=== PATIENT | male | born 1940 | race Caucasian/White ===

== ENCOUNTER 2018-05-16 07:52 | Inpatient (IN) ==
[2018-05-16] MEDS ORDERED: MORPHINE 4 MG/1 ML VIAL IV PRN (08:25)
[2018-05-16] MEDS ORDERED: ASPIRIN 325 MG TABLET PO STA (08:25)
[2018-05-16] MEDS ORDERED: ONDANSETRON 4 MG/2 ML VIAL IV PRN ×2 (08:25→11:16)
[2018-05-16] MEDS ORDERED: NITROGLYCERIN 2% OINT 1 INCH/GM PACK TOP STA (08:25)
[2018-05-16 08:38] LABS: Basophils % 0.3 % (0.0-0.8); Eosinophils % 0.3 % (0.00-10.9); Hematocrit 33.4 VOL% (42.0-52.0); Hemoglobin 11.5 GM/DL (14.0-18.0); Immature Granulocytes % 0.6 %; Immature Granulocytes Absolute 0.07 #; Lymphocytes # 0.9 10*3/uL (1.4-4.0); Mean Corpuscular HGB Conc 34.4 GM/DL (32-36); Mean Corpuscular Hemoglobin 29 PG (27-34); Mean Corpuscular Volume 84.3 FL (87-102); Mean Platelet Volume 9.8 FL (9.6-12.0); Monocytes % 8.4 % (1.7-12.7); Neutrophils # 10.3 10*3/uL (1.4-7.4); Neutrophils % 83.4 % (38.7-73.9); Platelet Count 319 T/CUMM (130-400); Red Blood Count 3.96 MC/CUMM (3.8-5.5); Red Cell Distribution Width 13.5 % (9.3-17.3); White Blood Count 12.3 T/CUMM (4-12)
[2018-05-16 08:44] LABS: INR 1.1; Partial Thromboplastin Time 33.5 SECS (0-40)
[2018-05-16 09:15] LABS: Albumin 3.5 G/DL (3.4-5.0); Bilirubin,Total 0.7 MG/DL (0.2-1.0); Calcium 8.2 MG/DL (8.5-10.1); Osmolality,Calculated 268.7 MOS/KG (273-304); Potassium 4.4 MMOL/L (3.5-5.1)
[2018-05-16] MEDS ORDERED: ACETAMINOPHEN 325 MG TABLET PO PRN (11:16)
[2018-05-16] MEDS: SODIUM CHLORIDE 0.9% 1,000 ML IV SCH (12:14)
[2018-05-16] MEDS ORDERED: DIAZEPAM 5 MG TABLET PO ONE (13:29)
[2018-05-16] MEDS ORDERED: POTASSIUM CHLORIDE RIDER 10 MEQ in PREMIX 1 EACH IV PRN (13:29)
[2018-05-16] MEDS ORDERED: diphenhydrAMINE CAP 25 MG CAPSULE PO ONE (13:29)
[2018-05-16] MEDS ORDERED: MAGNESIUM SULF RIDER 2 GM in PREMIX 1 EACH IV PRN (13:29)
[2018-05-16] MEDS ORDERED: LIDOCAINE 1% 20 ML VIAL ONE (13:33)
[2018-05-16] MEDS ORDERED: HEPARIN/NACL 0.9% 2 UNITS/ML 0 ML IV ONE (13:33)
[2018-05-16] MEDS ORDERED: HEPARIN/NACL 0.9% 2 UNITS/ML 1,000 ML IV ONE (13:35)
[2018-05-16] MEDS ORDERED: MIDAZOLAM 2 MG/2 ML VIAL ONE (14:01)
[2018-05-16] MEDS ORDERED: VERAPAMIL 5 MG/2 ML VIAL ONE (14:01)
[2018-05-16] MEDS ORDERED: HYDROmorphone 2 MG/1 ML VIAL ONE (14:01)
[2018-05-16] MEDS ORDERED: NITROGLYCERIN DRIP 50 MG/250 ML BOTTLE IV ONE (14:01)
[2018-05-16] MEDS ORDERED: SODIUM CHLORIDE 0.9% 1,000 ML IV SCH (14:30)
[2018-05-16] MEDS: GEMFIBROZIL 600 MG TABLET PO SCH (17:10)
[2018-05-16] MEDS: RANOLAZINE 500 MG TABLET PO SCH (21:28)
[2018-05-16] MEDS: PANTOPRAZOLE 40 MG VIAL IV SCH (21:28)
[2018-05-16] MEDS: ASCORBIC ACID 500 MG TABLET PO SCH (21:28)
[2018-05-16] MEDS: ATORVASTATIN 40 MG TABLET PO SCH (21:28)
[2018-05-16] MEDS: GABAPENTIN 300 MG CAPSULE PO SCH (21:28)
[2018-05-16 21:58] LABS: Apearance,Urine CLEAR (Clear); Bilirubin,Urine Negative (Negative); Blood, Urine Negative (Negative); Glucose,Urine (UA) Negative (Negative); Ketones,Urine Negative (Negative); Nitrite,Urine Negative (Negative); Protein,Urine Negative; RBC,Urine <1 /HPF (0-4); Urine Color Yellow (Yellow); Urine Specific Gravity 1.057 (1.001-1.035); Urine Urobilinogen < 2.0 EU/DL (0.2-1.0); WBC,Urine 2 /HPF (0-6)
[2018-05-17] MEDS: SODIUM CHLORIDE 0.9% 1,000 ML IV SCH ×2 (00:51→16:23)
[2018-05-17 04:38] LABS: Basophils % 0.4 % (0.0-0.8); Eosinophils # 0.1 10*3/uL (0.0-0.87); Eosinophils % 1.2 % (0.00-10.9); Hemoglobin 11.2 GM/DL (14.0-18.0); Immature Granulocytes % 0.6 %; Immature Granulocytes Absolute 0.05 #; Lymphocytes # 0.9 10*3/uL (1.4-4.0); Mean Corpuscular HGB Conc 33.9 GM/DL (32-36); Mean Corpuscular Hemoglobin 29 PG (27-34); Mean Corpuscular Volume 84.2 FL (87-102); Mean Platelet Volume 9.9 FL (9.6-12.0); Monocytes # 0.8 10*3/uL (0.11-0.8); Monocytes % 8.6 % (1.7-12.7); Neutrophils # 7.2 10*3/uL (1.4-7.4); Neutrophils % 79.2 % (38.7-73.9); Platelet Count 280 T/CUMM (130-400); Red Blood Count 3.92 MC/CUMM (3.8-5.5); Red Cell Distribution Width 13.8 % (9.3-17.3); White Blood Count 9.1 T/CUMM (4-12)
[2018-05-17 05:22] LABS: Calcium 8.2 MG/DL (8.5-10.1); Osmolality,Calculated 264.7 MOS/KG (273-304); Potassium 4.4 MMOL/L (3.5-5.1); Risk Ratio 2.52; Thyroid Stimulating Hormone 0.943 uIU/ml (0.358-3.74); VLDL CHOLESTEROL 14.2 MG/DL
[2018-05-17] MEDS: LEVOTHYROXINE 75 MCG TABLET PO SCH (06:35)
[2018-05-17] MEDS: GEMFIBROZIL 600 MG TABLET PO SCH ×2 (09:29→16:23)
[2018-05-17] MEDS: ASPIRIN EC 81 MG TABLET PO SCH (09:29)
[2018-05-17] MEDS: MONTELUKAST 10 MG TABLET PO SCH (09:30)
[2018-05-17] MEDS: RANOLAZINE 500 MG TABLET PO SCH ×2 (09:30→20:44)
[2018-05-17] MEDS: ASCORBIC ACID 500 MG TABLET PO SCH ×2 (09:30→20:43)
[2018-05-17] MEDS: CHOLECALCIFEROL 5,000 UNIT TABLET PO SCH (09:30)
[2018-05-17] MEDS: ESCITALOPRAM 10 MG TABLET PO SCH (09:30)
[2018-05-17] MEDS: ISOSORBIDE MONONITRATE 30 MG TABLET PO SCH (09:30)
[2018-05-17] MEDS: PANTOPRAZOLE 40 MG VIAL IV SCH ×2 (09:32→20:43)
[2018-05-17] MEDS: PANTOPRAZOLE 40 MG TABLET PO SCH (09:40)
[2018-05-17] MEDS: GABAPENTIN 300 MG CAPSULE PO SCH (20:43)
[2018-05-17] MEDS: ATORVASTATIN 40 MG TABLET PO SCH (20:44)
[2018-05-18 04:06] LABS: Basophils % 0.3 % (0.0-0.8); Eosinophils # 0.2 10*3/uL (0.0-0.87); Eosinophils % 1.5 % (0.00-10.9); Hematocrit 33.4 VOL% (42.0-52.0); Hemoglobin 11.6 GM/DL (14.0-18.0); Immature Granulocytes % 0.5 %; Immature Granulocytes Absolute 0.05 #; Lymphocytes # 0.8 10*3/uL (1.4-4.0); Lymphocytes % 8.4 % (21.2-54.2); Mean Corpuscular HGB Conc 34.7 GM/DL (32-36); Mean Corpuscular Hemoglobin 28 PG (27-34); Mean Corpuscular Volume 81.7 FL (87-102); Monocytes # 0.8 10*3/uL (0.11-0.8); Monocytes % 7.8 % (1.7-12.7); Neutrophils # 8.1 10*3/uL (1.4-7.4); Neutrophils % 81.5 % (38.7-73.9); Platelet Count 338 T/CUMM (130-400); Red Blood Count 4.09 MC/CUMM (3.8-5.5); Red Cell Distribution Width 13.5 % (9.3-17.3); White Blood Count 9.9 T/CUMM (4-12)
[2018-05-18 04:21] LABS: Calcium 8.2 MG/DL (8.5-10.1); Osmolality,Calculated 271.1 MOS/KG (273-304)
[2018-05-18] MEDS: SODIUM CHLORIDE 0.9% 1,000 ML IV SCH (05:20)
[2018-05-18] MEDS: LEVOTHYROXINE 75 MCG TABLET PO SCH (05:42)
[2018-05-18] MEDS ORDERED: LIDOCAINE 2% 5 ML VIAL ONE (10:00)
[2018-05-18] MEDS ORDERED: PROPOFOL 200 MG/20 ML VIAL IV ONE (10:00)
[2018-05-18 12:11] VITALS: BP 142/64
[2018-05-18] MEDS: CHOLECALCIFEROL 5,000 UNIT TABLET PO SCH (13:02)
[2018-05-18] MEDS: PANTOPRAZOLE 40 MG TABLET PO SCH (13:02)
[2018-05-18] MEDS: MONTELUKAST 10 MG TABLET PO SCH (13:02)
[2018-05-18] MEDS: ASPIRIN EC 81 MG TABLET PO SCH (13:02)
[2018-05-18] MEDS: RANOLAZINE 500 MG TABLET PO SCH (13:02)
[2018-05-18] MEDS: ESCITALOPRAM 10 MG TABLET PO SCH (13:03)
[2018-05-18] MEDS: ISOSORBIDE MONONITRATE 30 MG TABLET PO SCH (13:03)
[2018-05-18] MEDS: GEMFIBROZIL 600 MG TABLET PO SCH (13:03)
[2018-05-18] MEDS: ASCORBIC ACID 500 MG TABLET PO SCH (13:03)
[2018-05-18] MEDS: PANTOPRAZOLE 40 MG VIAL IV SCH (13:09)
== END 2018-05-18 15:49 | disposition home or self-care (01) | DRG 287 ==
LOC: N.ED 07:52 → N.EDINP 10:08 → N.2W 11:07 → N.TELEN 13:48
PROVIDERS: ADMIT Internal Medicine; ATTEND Internal Medicine
PROC: CLCCHCL (ICD-10-PCS; 2018-05-16 14:30)

== ENCOUNTER 2018-09-29 08:22 | Inpatient (IN) ==
[2018-09-29] MEDS ORDERED: ALBUTEROL/IPRATROPIUM 3 ML NEB RESP TX STA (09:00)
[2018-09-29] MEDS ORDERED: ONDANSETRON 4 MG/2 ML VIAL IV STA (09:00)
[2018-09-29 09:18] LABS: Basophils # 0.1 10*3/uL (0.0-0.2); Basophils % 0.4 % (0.0-0.8); Eosinophils # 0.2 10*3/uL (0.0-0.87); Eosinophils % 1.3 % (0.00-10.9); Hematocrit 25.2 VOL% (42.0-52.0); Immature Granulocytes % 0.5 %; Immature Granulocytes Absolute 0.06 #; Lymphocytes # 1.2 10*3/uL (1.4-4.0); Lymphocytes % 9.9 % (21.2-54.2); Mean Corpuscular HGB Conc 27.8 GM/DL (32-36); Mean Corpuscular Hemoglobin 19 PG (27-34); Mean Corpuscular Volume 69.4 FL (87-102); Mean Platelet Volume 9.8 FL (9.6-12.0); Monocytes # 0.9 10*3/uL (0.11-0.8); Monocytes % 7.4 % (1.7-12.7); Neutrophils # 9.5 10*3/uL (1.4-7.4); Neutrophils % 80.5 % (38.7-73.9); Platelet Count 433 T/CUMM (130-400); Red Blood Count 3.63 MC/CUMM (3.8-5.5); Red Cell Distribution Width 17.6 % (9.3-17.3); White Blood Count 11.8 T/CUMM (4-12)
[2018-09-29 09:19] LABS: INR 1.1; PT Patient Result 11.7 SECS; Partial Thromboplastin Time 24.3 SECS (0-40)
[2018-09-29 09:26] LABS: Albumin 3.8 G/DL (3.4-5.0); Bilirubin,Total 0.4 MG/DL (0.2-1.0); CKMB % 15.2 %; Calcium 8.4 MG/DL (8.5-10.1); Osmolality,Calculated 279.7 MOS/KG (273-304); Potassium 3.7 MMOL/L (3.5-5.1); Total Protein 7.2 G/DL (6.4-8.3)
[2018-09-29] MEDS ORDERED: FUROSEMIDE 40 MG/4 ML VIAL IV STA (09:26)
[2018-09-29 09:30] LABS: Troponin I 5.15 NG/ML (0.00-0.045)
[2018-09-29] MEDS ORDERED: ASPIRIN 325 MG TABLET ONE (09:31)
[2018-09-29 09:42] LABS: Ovalocytes Slight
[2018-09-29 09:43] LABS: Acanthocytes Few; Hypochromasia 2+; Microcytosis 1+; Platelet Estimate Increased; Target Cells Slight
[2018-09-29] MEDS ORDERED: ONDANSETRON 4 MG/2 ML VIAL IV PRN (10:02)
[2018-09-29] MEDS ORDERED: ZALEPLON 5 MG CAPSULE PO PRN (10:02)
[2018-09-29] MEDS ORDERED: NITROGLYCERIN SL 0.4 MG TABLET SL PRN (10:07)
[2018-09-29 11:15] LABS: Apearance,Urine CLEAR (Clear); Bilirubin,Urine Negative (Negative); Blood, Urine Negative (Negative); Glucose,Urine (UA) Negative (Negative); Ketones,Urine Negative (Negative); Nitrite,Urine Negative (Negative); Protein,Urine Negative; Urine Color Colorless (Yellow); Urine Specific Gravity 1.004 (1.001-1.035); Urine Urobilinogen < 2.0 EU/DL (0.2-1.0)
[2018-09-29] MEDS ORDERED: SODIUM CHLORIDE 0.9% 1,000 ML IV PRN (11:57)
[2018-09-29] MEDS: PANTOPRAZOLE 40 MG VIAL IV SCH ×2 (12:49→22:04)
[2018-09-29] MEDS: RANOLAZINE 500 MG TABLET PO SCH ×2 (12:50→21:58)
[2018-09-29] MEDS ORDERED: FUROSEMIDE 40 MG/4 ML VIAL IV ONE ×2 (15:22→19:03)
[2018-09-29] MEDS: GEMFIBROZIL 600 MG TABLET PO SCH (16:49)
[2018-09-29] MEDS: ATORVASTATIN 40 MG TABLET PO SCH (21:58)
[2018-09-29] MEDS: GABAPENTIN 300 MG CAPSULE PO SCH (21:58)
[2018-09-29 23:53] LABS: Hematocrit 30.1 VOL% (42.0-52.0)
[2018-09-30] MEDS: SODIUM CHLORIDE 0.9% 1,000 ML IV SCH ×2 (00:06→10:50)
[2018-09-30 04:04] LABS: Basophils # 0.1 10*3/uL (0.0-0.2); Basophils % 0.8 % (0.0-0.8); Eosinophils # 0.5 10*3/uL (0.0-0.87); Eosinophils % 5.3 % (0.00-10.9); Hemoglobin 9.1 GM/DL (14.0-18.0); Immature Granulocytes % 0.4 %; Immature Granulocytes Absolute 0.04 #; Lymphocytes # 1.7 10*3/uL (1.4-4.0); Lymphocytes % 19.2 % (21.2-54.2); Mean Corpuscular HGB Conc 29.4 GM/DL (32-36); Mean Corpuscular Hemoglobin 21 PG (27-34); Mean Corpuscular Volume 70.5 FL (87-102); Mean Platelet Volume 9.7 FL (9.6-12.0); Monocytes # 0.9 10*3/uL (0.11-0.8); Monocytes % 9.6 % (1.7-12.7); Neutrophils # 5.8 10*3/uL (1.4-7.4); Neutrophils % 64.7 % (38.7-73.9); Platelet Count 417 T/CUMM (130-400); Red Cell Distribution Width 20.7 % (9.3-17.3)
[2018-09-30 04:12] LABS: Calcium 8.7 MG/DL (8.5-10.1); Osmolality,Calculated 274.1 MOS/KG (273-304); Potassium 3.7 MMOL/L (3.5-5.1)
[2018-09-30] MEDS: RANOLAZINE 500 MG TABLET PO SCH ×2 (09:01→20:52)
[2018-09-30] MEDS: GEMFIBROZIL 600 MG TABLET PO SCH ×2 (09:01→16:11)
[2018-09-30] MEDS: MONTELUKAST 10 MG TABLET PO SCH (09:01)
[2018-09-30] MEDS: LOSARTAN 50 MG TABLET PO SCH (09:02)
[2018-09-30] MEDS: ASPIRIN EC 81 MG TABLET PO SCH (09:02)
[2018-09-30] MEDS: LEVOTHYROXINE 75 MCG TABLET PO SCH (09:02)
[2018-09-30] MEDS: PANTOPRAZOLE 40 MG VIAL IV SCH ×2 (09:02→20:52)
[2018-09-30] MEDS: ESCITALOPRAM 10 MG TABLET PO SCH (10:51)
[2018-09-30] MEDS: ATORVASTATIN 40 MG TABLET PO SCH (20:52)
[2018-09-30] MEDS: GABAPENTIN 300 MG CAPSULE PO SCH (20:52)
[2018-10-01 05:20] LABS: Calcium 8.7 MG/DL (8.5-10.1); Osmolality,Calculated 270.2 MOS/KG (273-304); Potassium 4.6 MMOL/L (3.5-5.1)
[2018-10-01 05:42] LABS: Basophils % 0.4 % (0.0-0.8); Eosinophils # 0.6 10*3/uL (0.0-0.87); Eosinophils % 9.3 % (0.00-10.9); Hemoglobin 9.6 GM/DL (14.0-18.0); Immature Granulocytes % 0.6 %; Immature Granulocytes Absolute 0.04 #; Lymphocytes # 1.5 10*3/uL (1.4-4.0); Lymphocytes % 22.3 % (21.2-54.2); Mean Corpuscular HGB Conc 29.1 GM/DL (32-36); Mean Corpuscular Hemoglobin 21 PG (27-34); Mean Platelet Volume 9.5 FL (9.6-12.0); Monocytes # 0.8 10*3/uL (0.11-0.8); Monocytes % 11.6 % (1.7-12.7); Neutrophils # 3.8 10*3/uL (1.4-7.4); Neutrophils % 55.8 % (38.7-73.9); Platelet Count 399 T/CUMM (130-400); Red Blood Count 4.65 MC/CUMM (3.8-5.5); Red Cell Distribution Width 21.4 % (9.3-17.3); White Blood Count 6.8 T/CUMM (4-12)
[2018-10-01 05:51] LABS: Hypochromasia 1+; Microcytosis Slight; Ovalocytes Slight; Platelet Estimate Adequate
[2018-10-01] MEDS: LEVOTHYROXINE 75 MCG TABLET PO SCH (07:25)
[2018-10-01] MEDS: ESCITALOPRAM 10 MG TABLET PO SCH (08:34)
[2018-10-01] MEDS: GEMFIBROZIL 600 MG TABLET PO SCH ×2 (08:35→16:40)
[2018-10-01] MEDS: MONTELUKAST 10 MG TABLET PO SCH (08:35)
[2018-10-01] MEDS: RANOLAZINE 500 MG TABLET PO SCH ×2 (08:35→20:33)
[2018-10-01] MEDS: PANTOPRAZOLE 40 MG VIAL IV SCH ×2 (08:35→20:34)
[2018-10-01] MEDS: ASPIRIN EC 81 MG TABLET PO SCH (08:35)
[2018-10-01] MEDS: LOSARTAN 50 MG TABLET PO SCH (08:35)
[2018-10-01] MEDS ORDERED: MAGNESIUM HYDROXIDE SUSP 30 ML UDCUP PO PRN (09:43)
[2018-10-01] MEDS: DOCUSATE SODIUM 100 MG CAPSULE PO SCH ×2 (10:44→20:33)
[2018-10-01] MEDS ORDERED: MAGNESIUM CITRATE 300 ML BOTTLE PO ONE (18:00)
[2018-10-01] MEDS: GABAPENTIN 300 MG CAPSULE PO SCH (20:33)
[2018-10-01] MEDS: ATORVASTATIN 40 MG TABLET PO SCH (20:33)
[2018-10-02] MEDS: LEVOTHYROXINE 75 MCG TABLET PO SCH (06:36)
[2018-10-02] MEDS: GEMFIBROZIL 600 MG TABLET PO SCH ×2 (06:36→16:48)
[2018-10-02] MEDS: PANTOPRAZOLE 40 MG VIAL IV SCH ×2 (09:41→20:14)
[2018-10-02] MEDS: ASPIRIN EC 81 MG TABLET PO SCH (09:41)
[2018-10-02] MEDS: RANOLAZINE 500 MG TABLET PO SCH ×2 (09:42→20:13)
[2018-10-02] MEDS: MONTELUKAST 10 MG TABLET PO SCH (09:42)
[2018-10-02] MEDS: DOCUSATE SODIUM 100 MG CAPSULE PO SCH ×2 (09:42→20:14)
[2018-10-02] MEDS: ESCITALOPRAM 10 MG TABLET PO SCH (09:42)
[2018-10-02] MEDS: LOSARTAN 50 MG TABLET PO SCH (09:42)
[2018-10-02] MEDS: GABAPENTIN 300 MG CAPSULE PO SCH (20:13)
[2018-10-02] MEDS: ATORVASTATIN 40 MG TABLET PO SCH (20:13)
[2018-10-03 04:33] LABS: Calcium 9.3 MG/DL (8.5-10.1); Osmolality,Calculated 274.1 MOS/KG (273-304)
[2018-10-03 04:50] LABS: Basophils # 0.1 10*3/uL (0.0-0.2); Basophils % 0.7 % (0.0-0.8); Eosinophils # 0.8 10*3/uL (0.0-0.87); Eosinophils % 9.5 % (0.00-10.9); Hematocrit 36.9 VOL% (42.0-52.0); Hemoglobin 10.6 GM/DL (14.0-18.0); Immature Granulocytes % 0.5 %; Immature Granulocytes Absolute 0.04 #; Lymphocytes # 2.2 10*3/uL (1.4-4.0); Lymphocytes % 26.2 % (21.2-54.2); Mean Corpuscular HGB Conc 28.7 GM/DL (32-36); Mean Corpuscular Hemoglobin 21 PG (27-34); Mean Corpuscular Volume 71.5 FL (87-102); Mean Platelet Volume 9.3 FL (9.6-12.0); Monocytes # 0.8 10*3/uL (0.11-0.8); Monocytes % 8.8 % (1.7-12.7); Neutrophils # 4.6 10*3/uL (1.4-7.4); Neutrophils % 54.3 % (38.7-73.9); Platelet Count 465 T/CUMM (130-400); Red Blood Count 5.16 MC/CUMM (3.8-5.5); Red Cell Distribution Width 22.3 % (9.3-17.3); White Blood Count 8.5 T/CUMM (4-12)
[2018-10-03 04:59] LABS: Burr Cells Slight; Hypochromasia 1+; Ovalocytes Slight; Platelet Estimate Adequate
[2018-10-03 05:00] LABS: Microcytosis Slight
[2018-10-03] MEDS: LEVOTHYROXINE 75 MCG TABLET PO SCH (05:35)
[2018-10-03] MEDS: LOSARTAN 50 MG TABLET PO SCH (08:48)
[2018-10-03] MEDS: ESCITALOPRAM 10 MG TABLET PO SCH (08:48)
[2018-10-03] MEDS: MONTELUKAST 10 MG TABLET PO SCH (08:48)
[2018-10-03] MEDS: GEMFIBROZIL 600 MG TABLET PO SCH (08:48)
[2018-10-03] MEDS: ASPIRIN EC 81 MG TABLET PO SCH (08:49)
[2018-10-03] MEDS: PANTOPRAZOLE 40 MG VIAL IV SCH (08:49)
[2018-10-03] MEDS: DOCUSATE SODIUM 100 MG CAPSULE PO SCH (08:49)
[2018-10-03] MEDS: RANOLAZINE 500 MG TABLET PO SCH (08:55)
[2018-10-03 16:04] VITALS: BP 140/67
== END 2018-10-03 18:00 | disposition home or self-care (01) | DRG 377 ==
LOC: N.ED 08:22 → SUATTDRO 09:50 → N.EDINP 10:02 → N.TELEN 11:09
PROVIDERS: ADMIT Internal Medicine Cardiovascular Disease; ATTEND Internal Medicine

== ENCOUNTER 2020-01-10 08:44 | Observation (INO) ==
[2020-01-10] MEDS ORDERED: ASPIRIN 325 MG TABLET PO STA (09:10)
[2020-01-10] MEDS ORDERED: NITROGLYCERIN SL 0.4 MG TABLET SL PRN (09:10)
[2020-01-10] MEDS ORDERED: ENOXAPARIN 100 MG/ML SYRINGE SUBCUT STA (09:10)
[2020-01-10] MEDS ORDERED: ENOXAPARIN 80 MG/0.8 ML SYRINGE SUBCUT ONE (09:12)
[2020-01-10 09:35] LABS: Basophils # 0.1 10*3/uL (0.0-0.2); Basophils % 1.5 % (0.0-0.8); Eosinophils # 0.5 10*3/uL (0.0-0.87); Eosinophils % 8.2 % (0.00-10.9); Hematocrit 44.7 VOL% (42.0-52.0); Hemoglobin 14.6 GM/DL (14.0-18.0); Immature Granulocytes % 0.3 %; Immature Granulocytes Absolute 0.02 #; Lymphocytes # 1.6 10*3/uL (1.4-4.0); Mean Corpuscular HGB Conc 32.7 GM/DL (32-36); Mean Platelet Volume 9.8 FL (9.6-12.0); Platelet Count 302 T/CUMM (130-400); Red Blood Count 5.14 MC/CUMM (3.8-5.5); Red Cell Distribution Width 13.1 % (9.3-17.3); White Blood Count 5.9 T/CUMM (4-12)
[2020-01-10 09:55] LABS: Albumin 3.8 G/DL (3.4-5.0); Bilirubin,Total 0.8 MG/DL (0.2-1.0); Calcium 9.2 MG/DL (8.5-10.1); Osmolality,Calculated 274.1 MOS/KG (273-304); Total Protein 7.4 G/DL (6.4-8.3)
[2020-01-10] MEDS ORDERED: ONDANSETRON 4 MG/2 ML VIAL IV PRN (10:13)
[2020-01-10] MEDS ORDERED: NICOTINE 21 MG/24 HR PATCH TRANSDERM PRN (10:13)
[2020-01-10] MEDS ORDERED: diphenhydrAMINE CAP 25 MG CAPSULE PO PRN (10:13)
[2020-01-10] MEDS ORDERED: ALUMINUM/MAGNES/SIMETH MAX STR 30 ML UDCUP PO PRN (10:13)
[2020-01-10] MEDS ORDERED: SIMETHICONE CHEW 125 MG TABLET PO PRN (10:13)
[2020-01-10] MEDS ORDERED: PROMETHAZINE 25 MG TABLET PO PRN (10:13)
[2020-01-10] MEDS ORDERED: BISACODYL 5 MG TABLET PO PRN (10:13)
[2020-01-10] MEDS ORDERED: MAGNESIUM SULF RIDER 4 GM in PREMIX 1 EACH IV PRN (10:13)
[2020-01-10] MEDS ORDERED: guaiFENesin/DM ER 600-30 MG TABLET PO PRN (10:13)
[2020-01-10] MEDS ORDERED: MAGNESIUM SULF RIDER 2 GM in PREMIX 1 EACH IV PRN (10:13)
[2020-01-10] MEDS ORDERED: POTASSIUM CHLORIDE 20 MEQ TABLET PO PRN (10:13)
[2020-01-10] MEDS ORDERED: ACETAMINOPHEN 325 MG TABLET PO PRN (10:13)
[2020-01-10] MEDS ORDERED: MORPHINE 4 MG/1 ML VIAL IV PRN (10:13)
[2020-01-10] MEDS ORDERED: CALCIUM CARBONATE CHEW 500 MG TABLET PO PRN (10:13)
[2020-01-10] MEDS ORDERED: DOCUSATE SODIUM 100 MG CAPSULE PO PRN (10:13)
[2020-01-10] MEDS ORDERED: hydrALAZINE 20 MG/1 ML VIAL IV PRN (10:13)
[2020-01-10] MEDS ORDERED: ZALEPLON 5 MG CAPSULE PO PRN (10:13)
[2020-01-10 10:32] LABS: Risk Ratio 2.69; VLDL CHOLESTEROL 34.6 MG/DL
[2020-01-10] MEDS ORDERED: CLORAZEPATE 3.75 MG TABLET PO PRN (11:18)
[2020-01-10] MEDS ORDERED: NITROGLYCERIN DRIP 50 MG/250 ML BOTTLE IV ONE (12:05)
[2020-01-10] MEDS ORDERED: VERAPAMIL 5 MG/2 ML VIAL ONE (12:05)
[2020-01-10] MEDS ORDERED: HEPARIN/NACL 0.9% 2 UNITS/ML 1,000 ML IV ONE (12:05)
[2020-01-10] MEDS ORDERED: LIDOCAINE 1% 20 ML VIAL ONE (12:05)
[2020-01-10] MEDS ORDERED: MIDAZOLAM 2 MG/2 ML VIAL ONE (13:49)
[2020-01-10] MEDS ORDERED: HYDROmorphone 2 MG/1 ML VIAL ONE (13:49)
[2020-01-10] MEDS ORDERED: BIVALIRUDIN 250 MG VIAL IV ONE (14:04)
[2020-01-10] MEDS ORDERED: TICAGRELOR 90 MG TABLET ONE (14:05)
[2020-01-10] MEDS ORDERED: POTASSIUM CHLORIDE RIDER 10 MEQ in PREMIX 1 EACH IV PRN (14:39)
[2020-01-10] MEDS ORDERED: DIAZEPAM 5 MG TABLET PO ONE (14:39)
[2020-01-10] MEDS ORDERED: diphenhydrAMINE CAP 25 MG CAPSULE PO ONE (14:39)
[2020-01-10] MEDS: COLESEVELAM 625 MG TABLET PO SCH ×2 (15:44→21:55)
[2020-01-10] MEDS: gemfibroziL 600 MG TABLET PO SCH (15:44)
[2020-01-10] MEDS: SODIUM CHLORIDE 0.45% 1,000 ML IV SCH (15:45)
[2020-01-10 18:30] LABS: Apearance,Urine CLEAR (Clear); Bilirubin,Urine Negative (Negative); Blood, Urine Negative (Negative); Glucose,Urine (UA) Negative (Negative); Ketones,Urine Negative (Negative); Nitrite,Urine Negative (Negative); Protein,Urine Negative; RBC,Urine 2 /HPF (0-4); Squamous Epithelial Cell,Urine Occasional /HPF (0-10); Urine Color Yellow (Yellow); Urine Specific Gravity 1.057 (1.001-1.035); Urine Urobilinogen < 2.0 EU/DL (0.2-1.0); WBC,Urine 1 /HPF (0-6)
[2020-01-10 18:34] LABS: Barbiturates Screen,Urine Negative (Negative); Benzodiazepines Screen,Urine Positive (Negative); Cannabinoid Screen,Urine Negative (Negative); Opiate Screen,Urine Positive (Negative); Phencyclidine Screen,Urine Negative (Negative)
[2020-01-10] MEDS ORDERED: GABAPENTIN 300 MG CAPSULE PO SCH (21:00)
[2020-01-10] MEDS ORDERED: ATORVASTATIN 40 MG TABLET PO SCH (21:00)
[2020-01-10] MEDS: ASCORBIC ACID 500 MG TABLET PO SCH (21:55)
[2020-01-11] MEDS: SODIUM CHLORIDE 0.45% 1,000 ML IV SCH ×2 (00:23→09:07)
[2020-01-11] MEDS ORDERED: LEVOTHYROXINE 75 MCG TABLET PO SCH (06:30)
[2020-01-11 07:29] LABS: Basophils % 0.6 % (0.0-0.8); Eosinophils # 0.6 10*3/uL (0.0-0.87); Hematocrit 42.7 VOL% (42.0-52.0); Hemoglobin 14.2 GM/DL (14.0-18.0); Immature Granulocytes % 0.5 %; Immature Granulocytes Absolute 0.03 #; Lymphocytes # 1.6 10*3/uL (1.4-4.0); Lymphocytes % 24.3 % (21.2-54.2); Mean Corpuscular HGB Conc 33.3 GM/DL (32-36); Mean Corpuscular Volume 85.4 FL (87-102); Mean Platelet Volume 10.2 FL (9.6-12.0); Monocytes % 9.2 % (1.7-12.7); Neutrophils % 56.4 % (38.7-73.9); Platelet Count 248 T/CUMM (130-400); Red Cell Distribution Width 13.1 % (9.3-17.3); White Blood Count 6.6 T/CUMM (4-12)
[2020-01-11 07:43] LABS: Blood Urea Nitrogen 13 MG/DL (7-18); Estimated Glom Filtration Rate 88 ML/MIN; Glucose 87 MG/DL (74-106); Osmolality,Calculated 271.8 MOS/KG (273-304); Troponin I < 0.015 NG/ML (0.00-0.045)
[2020-01-11 07:48] VITALS: BP 146/73
[2020-01-11] MEDS ORDERED: ESCITALOPRAM 10 MG TABLET PO SCH (09:00)
[2020-01-11] MEDS ORDERED: ASPIRIN EC 81 MG TABLET PO SCH (09:00)
[2020-01-11] MEDS ORDERED: PANTOPRAZOLE 40 MG TABLET PO SCH (09:00)
[2020-01-11] MEDS ORDERED: MONTELUKAST 10 MG TABLET PO SCH (09:00)
[2020-01-11] MEDS ORDERED: POTASSIUM CHLORIDE 10 MEQ TABLET PO SCH (09:00)
[2020-01-11] MEDS ORDERED: CHOLECALCIFEROL 5,000 UNIT TABLET PO SCH (09:00)
[2020-01-11] MEDS: gemfibroziL 600 MG TABLET PO SCH (09:11)
[2020-01-11] MEDS: COLESEVELAM 625 MG TABLET PO SCH (09:11)
[2020-01-11] MEDS: ASCORBIC ACID 500 MG TABLET PO SCH (09:12)
[2020-01-11] MEDS ORDERED: TICAGRELOR 90 MG TABLET PO SCH (10:30)
== END 2020-01-11 11:42 | disposition home or self-care (01) ==
LOC: N.EDINP 08:44 → N.ED 08:44 → N.TELES 10:49
PROVIDERS: ADMIT Internal Medicine Cardiovascular Disease; ATTEND Internal Medicine Cardiovascular Disease